=== PATIENT | male | born 2000 | race Hispanic/Latino ===

== ENCOUNTER 2024-02-10 18:10 | Emergency (ER) | payer SELFPAY ==
[2024-02-10 19:23] LABS: SARS-CoV-2 Antigen CONTROL BLUE LINE VIS/BG OK; SARS-CoV-2 Antigen Rapid Res Negative (Negative)
--- NOTE | 2024-02-10 20:42 | EDPHYS ---
Physician Documentation [facility] Name: Roberta Adams Age: 23 yrs Sex: Male : 2000 Arrival Date: 02/10/2024 Time: 18:10 Bed IW1 Private MD: ED Physician Ritchie Mas HPI: 02/09 23:09 This 23 yrs old Male presents to ER via Ambulatory with complaints of kb Shortness Of Breath. 23:09 Patient is a 23-year-old male with a history of asthma and allergies who presents for kb cough, shortness of breath, congestion. Denies fever, chills.. Historical: - Allergies: 18:48 No Known Allergies; iw - PMHx: 18:48 Asthma; iw - PSHx: 18:48 None; iw - Immunization history:: Adult Immunizations not up to date. - Infectious Disease History:: Denies. - Social history:: Smoking status: Reported history of juuling and/or vaping. ROS: 23:09 Constitutional: As per HPI kb Exam: 23:09 Constitutional: This is a well developed, well nourished patient who is awake, alert, kb and in no acute distress. Head/Face: Normocephalic, atraumatic. ENT: Moist Mucous membranes Cardiovascular: Regular rate Respiratory: Respirations even and unlabored. No increased work of breathing. Talking in full sentences Abdomen/GI: Soft, non-tender. No distention Skin: Warm, dry with normal turgor. Normal color. MS/ Extremity: Pulses equal, no cyanosis. Neurovascular intact. Full, normal range of motion. Neuro: Awake and alert, GCS 15, oriented to person, place, time, and situation. Moves all extremities. Normal gait. Vital Signs: 18:47 BP 122 / 79; Pulse 97; Resp 19; Temp 97.9; Pulse Ox 99% on R/A; Weight 75.75 kg; Height iw 5 ft. 5 in. ; 20:53 BP 119 / 77; Pulse 89; Resp 17 S; Temp 97.4(O); Pulse Ox 100% on R/A; lg3 18:47 Body Mass Index 27.79 (75.75 kg, 165.1 cm) iw MDM: 18:50 Patient medically screened. kb 23:09 Differential diagnosis: Flu, COVID, URI, asthma exacerbation. Data reviewed: vital kb signs, nurses notes. I considered the following discharge prescriptions or medication management in the emergency department Antibiotics: At this time antibiotics are not recommended. Test considered but Not performed: X-ray: Chest x-ray considered but lungs clear bilaterally, respirations even and unlabored, oxygen saturation 100% on room air. Historians other than the Patient: Parent: Mother. Counseling: I had a detailed discussion with the patient and/or guardian regarding the historical points, exam findings, and any diagnostic results supporting the discharge/admit diagnosis, lab results, the need for outpatient follow up, a family practitioner, to return to the emergency department if symptoms worsen or persist or if there are any questions or concerns that arise at home. 02/09 18:51 Order name: Flu; Complete Time: 19:29 kb 02/09 18:51 Order name: Strep kb 02/09 18:51 Order name: SARS-COV-2 Antigen Rapid; Complete Time: 19:29 kb 02/09 19:27 Order name: Throat Culture EDMS Administered Medications: No medications were administered Disposition Summary: 02/10/24 20:41 Discharge Ordered Notes: Location: Home kb Condition: Stable kb Diagnosis - Acute upper respiratory infection, unspecified kb Followup: kb - With: Emergency Department - When: As needed - Reason: Worsening of condition Followup: kb - With: Private Physician - When: 2 - 3 days - Reason: Recheck today's complaints, Continuance of care, Re-evaluation by your physician Discharge Instructions: - Discharge Summary Sheet kb - Upper Respiratory Infection, Adult, [id number] kb - Viral Respiratory Infection, [id number] kb Forms: - Medication Reconciliation Form kb - Antibiotic Education kb - Prescription Opioid Use kb - Patient Portal Instructions kb - Leadership Thank You Letter kb Prescriptions: - albuterol sulfate 90 mcg/actuation Inhalation HFA Aerosol Inhaler - inhale 2 puff INHALATION route every 4 to 6 hours As needed; 1 unit; Refills: kb 0, Product Selection Permitted Addendum: 02/13/2024 15:52 Co-signature as Attending Physician, Ritchie Mas MD I agree with the assessment and c lei plan of care. Signatures: Dispatcher [employer] EDLaura Cowart FNP-Noemy NUR-Ckb Chace, Ritchie, MD MD deborah Travis, Stacey, RN RN iw Corrections: (The following items were deleted from the chart) 02/09 18:51 18:51 Influenza Screen (A \T\ B)+BA.LAB.BRZ ordered. EDMS EDMS 18:51 18:51 Group A Streptococcus Rapid Sc+BA.LAB.BRZ ordered. EDMS EDMS 18:51 18:51 SARS-COV-2 Antigen Rapid+I.LAB.BRZ ordered. EDMS EDMS
--- NOTE | 2024-02-10 20:42 | ER ---
[facility] Name: Roberta Adams Age: 23 yrs Sex: Male : 2000 Arrival Date: 02/10/2024 Time: 18:10 Bed IW1 Private MD: Diagnosis: Acute upper respiratory infection, unspecified Presentation: 02/09 18:47 Chief complaint: Patient states: has asthma and allergies, right now I can't breathe iw and I'm coughing a lot X 2 days. Coronavirus screen: Client presents with at least one sign or symptom that may indicate coronavirus-19. Ebola Screen: No symptoms or risks identified at this time. Initial Sepsis Screen: Does the patient meet any 2 criteria? No. Patient's initial sepsis screen is negative. Does the patient have a suspected source of infection? No. Patient's initial sepsis screen is negative. Risk Assessment: Do you want to hurt yourself or someone else? Patient reports no desire to harm self or others. Onset of symptoms was February 08, 2024. 18:47 Method Of Arrival: Ambulatory iw 18:47 Acuity: RAUL 4 iw Historical: - Allergies: 18:48 No Known Allergies; iw - PMHx: 18:48 Asthma; iw - PSHx: 18:48 None; iw - Immunization history:: Adult Immunizations not up to date. - Infectious Disease History:: Denies. - Social history:: Smoking status: Reported history of juuling and/or vaping. Screenin:53 [facility] ED Fall Risk Assessment (Adult) History of falling in the last 3 months, lg3 including since admission No falls in past 3 months (0 pts) Confusion or Disorientation No (0 pts) Intoxicated or Sedated No (0 pts) Impaired Gait No (0 pts) Mobility Assist Device Used No (0 pt) Altered Elimination No (0 pt) Score/Fall Risk Level 0 - 2 = Low Risk Oriented to surroundings, Maintained a safe environment, Educated pt \T\ family on fall prevention, incl call for assistance when getting out of bed, Assessed \T\ reinforced patient's understanding of fall precautions. Abuse screen: Denies threats or abuse. Denies injuries from another. Nutritional screening: No deficits noted. Tuberculosis screening: No symptoms or risk factors identified. Assessment: 20:53 General: Appears in no apparent distress. comfortable, Behavior is calm, cooperative. lg3 Pain: Denies pain. Neuro: No deficits noted. Brooks Agitation-Sedation Scale (RASS): 0 - Alert and Calm Level of Consciousness is awake, alert, obeys commands, Oriented to person, place, time, situation. Cardiovascular: No deficits noted. Denies chest pain. Respiratory: No deficits noted. Reports shortness of breath cough that is Airway is patent Respiratory effort is even, unlabored, Respiratory pattern is regular, symmetrical, Breath sounds are clear bilaterally. GI: No deficits noted. No signs and/or symptoms were reported involving the gastrointestinal system. : No deficits noted. No signs and/or symptoms were reported regarding the genitourinary system. EENT: No deficits noted. Reports nasal congestion. Derm: No deficits noted. No signs and/or symptoms reported regarding the dermatologic system. Skin is intact, is healthy with good turgor, Skin is dry, Skin is normal, Skin temperature is warm. Musculoskeletal: No deficits noted. No signs and/or symptoms reported regarding the musculoskeletal system. Circulation, motion, and sensation intact. Range of motion: intact in all extremities. Vital Signs: 18:47 BP 122 / 79; Pulse 97; Resp 19; Temp 97.9; Pulse Ox 99% on R/A; Weight 75.75 kg; Height iw 5 ft. 5 in. ; 20:53 BP 119 / 77; Pulse 89; Resp 17 S; Temp 97.4(O); Pulse Ox 100% on R/A; lg3 18:47 Body Mass Index 27.79 (75.75 kg, 165.1 cm) ED Course: 18:12 Patient arrived in ED. mr 18:48 Triage completed. iw 18:49 Laura Coreas [facility]NP-C [facility] kb 18:49 Ritchie Mas MD is Attending Physician. kb 18:49 Arm band placed on. iw 20:53 Patient has correct armband on for positive identification. lg3 20:53 No provider procedures requiring assistance completed. Patient did not have IV access lg3 during this emergency room visit. Administered Medications: No medications were administered Medication: 20:53 VIS not applicable for this client. lg3 Outcome: 20:41 Discharge ordered by . kb 20:53 Discharged to home ambulatory, lg3 20:53 Condition: stable 20:53 Discharge instructions given to patient, Instructed on discharge instructions, follow up and referral plans. medication usage, Demonstrated understanding of instructions, follow-up care, medications, Prescriptions given X 1, 20:55 Patient left the ED. lg3 Signatures: Laura Coreas, BOOM-[employer] CLAMP CARRIER OPERATOR-Keya Abreu, Reg Reg Stacey Robles, RN RN iw Janet Farrell RN RN lg3
[2024-02-10 21:36] VITALS: BP 119/77; TEMP 97.4; O2SAT 100
== END 2024-02-10 20:55 | disposition home or self-care (01) ==
LOC: ER 18:10
DX: J06.9 Acute upper respiratory infection, unspecified (principal); Z11.52 Encounter for screening for COVID-19
CPT/HCPCS: 36415; 87070; 87081; 87804; 87811; 99283